=== PATIENT | male | born 1960 | race Caucasian/White ===

== ENCOUNTER 2017-02-21 10:37 | Day surgery (SDC) | payer OTHER ==
[2017-02-21] MEDS ORDERED: D5 LR 1000 ML 1,000 ML IV ONE (10:44)
[2017-02-21] MEDS ORDERED: DIPRIVAN VIAL 20 ML ONE (11:57)
[2017-02-21] MEDS ORDERED: VERSED ONE (12:06)
[2017-02-21] MEDS ORDERED: DIPRIVAN VIAL 10 ML ONE (12:15)
[2017-02-21 13:14] VITALS: BP 126/71
== END 2017-02-21 12:45 | disposition home or self-care (01) ==
LOC: SURG1 10:37
PROVIDERS: ATTEND Internal Medicine Gastroenterology
PROC: 0DJD8ZZ Inspection of Lower Intestinal Tract, Via Natural or Artificial Opening Endoscopic (ICD-10-PCS; principal; 2017-02-21 14:45)
PROC: 0DBM8ZX Excision of Descending Colon, Via Natural or Artificial Opening Endoscopic, Diagnostic (ICD-10-PCS; principal; 2017-02-21 14:45)
PROC: 0DBN8ZX Excision of Sigmoid Colon, Via Natural or Artificial Opening Endoscopic, Diagnostic (ICD-10-PCS; principal; 2017-02-21 14:45)
PROC: 0DBL8ZX Excision of Transverse Colon, Via Natural or Artificial Opening Endoscopic, Diagnostic (ICD-10-PCS; principal; 2017-02-21 14:45)
DX: Z12.11 Encounter for screening for malignant neoplasm of colon (principal); Z80.0 Family history of malignant neoplasm of digestive organs; K63.5 Polyp of colon; K64.0 First degree hemorrhoids; D12.3 Benign neoplasm of transverse colon
CPT/HCPCS: A4217; J2250; J3490; J7120